=== PATIENT | male | born 1960 | race Caucasian/White ===

== ENCOUNTER 2019-02-06 05:08 | Emergency (ER) | payer OTHER ==
--- NOTE | 2019-02-06 06:19 | EDM.PDOC ---
ED HPI GENERAL MEDICAL PROBLEM - General Chief Complaint: Genitourinary Problem Stated Complaint: BLADDER PROBLEMS Time Seen by Provider: 02/06/19 06:15 Source of Information: Reports: Patient, Family, RN Notes Reviewed History Limitations: Reports: No Limitations - History of Present Illness INITIAL COMMENTS - FREE TEXT/NARRATIVE: 58-year-old gentleman presents emergency department today with complaint of urinary retention. He recently had surgery with prostate biopsies had Siegel catheter removed a couple days prior now is having difficulty with urination. Penis Pain Score (Numeric/FACES): 8 - Related Data Allergies Allergy/AdvReac Type Severity Reaction Status Date / Time Penicillins AdvReac Hives Verified 02/06/19 05:31 Past Medical History HEENT History: Reports: Impaired Vision Respiratory History: Reports: Sleep Apnea Genitourinary History: Reports: Renal Calculus Neurological History: Reports: Cerebral Aneurysms, TIA Endocrine/Metabolic History: Reports: Obesity/BMI 30+ Oncologic (Cancer) History: Reports: Prostate - Past Surgical History Head Surgeries/Procedures: Reports: None Cardiovascular Surgical History: Reports: Other (See Below) Respiratory Surgical History: Reports: None GI Surgical History: Reports: Cholecystectomy, Hernia, Abdominal Endocrine Surgical History: Reports: None Neurological Surgical History: Reports: Spinal Fusion Musculoskeletal Surgical History: Reports: Knee Replacement Oncologic Surgical History: Reports: None Social & Family History - Tobacco Use Smoking Status *Q: Current Every Day Smoker Years of Tobacco use: 30 Packs/Tins Daily: 1 Used Tobacco, but Quit: No Second Hand Smoke Exposure: No - Caffeine Use Caffeine Use: Reports: Coffee - Alcohol Use Days Per Week of Alcohol Use: 7 Number of Drinks Per Day: 6 Total Drinks Per Week: 42 - Recreational Drug Use Recreational Drug Use: No ED ROS GENERAL - Review of Systems Review Of Systems: See Below Constitutional: Denies: Fever, Chills HEENT: Reports: No Symptoms Respiratory: Reports: No Symptoms Cardiovascular: Reports: No Symptoms GI/Abdominal: Reports: Abdominal Pain : Reports: Urinary Retention ED EXAM, RENAL/ - Physical Exam Exam: See Below Exam Limited By: No Limitations General Appearance: Alert, Mild Distress Respiratory/Chest: No Respiratory Distress GI/Abdominal: Soft, Tender (Suprapubic) Course - Vital Signs Last Recorded V/S: Last Vital Signs Temp 98.5 F 02/06/19 05:35 Pulse 81 02/06/19 05:35 Resp 16 02/06/19 05:35 BP 131/67 02/06/19 05:35 Pulse Ox 92 L 02/06/19 05:35 - Orders/Labs/Meds Orders: Active Orders 24 hr Category Date Time Status Insert Siegel Catheter [Insert Urinary Catheter] [OM.PC] Care 02/06/19 06:15 Ordered Q24H Urinary Catheter Assessment [RC] ASDIRECTED Care 02/06/19 06:16 Active Labs: Laboratory Tests 02/06/19 Range/Units 06:35 Urine Color Brown Urine Appearance Cloudy Urine pH 5.0 (4.5-8.0) Ur Specific Draper 1.025 (1.008-1.030) Urine Protein 100 H (NEGATIVE) mg/dL Urine Glucose (UA) Normal (NEGATIVE) mg/dL Urine Ketones Negative (NEGATIVE) mg/dL Urine Occult Blood Large (NEGATIVE) Urine Nitrite Negative (NEGAITVE) Urine Bilirubin Negative (NEGATIVE) Urine Urobilinogen Normal (NORMAL) mg/dL Ur Leukocyte Esterase Negative (NEGATIVE) Urine RBC Packed H (0-5) Urine WBC 0-5 (0-5) Ur Epithelial Cells Few Amorphous Sediment Many Urine Bacteria Few Urine Mucus Not seen Departure - Departure Time of Disposition: 06:49 Disposition: Home, Self-Care 01 Condition: Fair Clinical Impression: Retention of urine - Discharge Information Instructions: Indwelling Urinary Catheter Care, Adult Referrals: PCP,None [Primary Care Provider] - Forms: ED Department Discharge Additional Instructions: Continue using the leg bag until reevaluated by urology, call return to the emergency department worsening of symptoms - My Orders Last 24 Hours: My Active Orders 02/06/19 06:15 Insert Siegel Catheter [Insert Urinary Catheter] [OM.PC] Q24H 02/06/19 06:16 Urinary Catheter Assessment [RC] ASDIRECTED - Assessment/Plan Last 24 Hours: My Active Orders 02/06/19 06:15 Insert Siegel Catheter [Insert Urinary Catheter] [OM.PC] Q24H 02/06/19 06:16 Urinary Catheter Assessment [RC] ASDIRECTED Plan: Assessment Acuity = acute Site and laterality = urinary retention Etiology = probably related to recent surgery Manifestations = abdominal pain now resolved Location of injury = Home Lab values = urinalysis reveals packed red blood cells consistent hematuria Plan Siegel catheter is placed follow-up with urology in 2-3 days for reevaluation This note was dictated using [employer] voice recognition software please call with any questions on syntax or grammar.
== END 2019-02-06 07:08 | disposition home or self-care (01) ==
LOC: JP.ED 05:08
DX: R33.9 Retention of urine, unspecified (principal); F17.210 Nicotine dependence, cigarettes, uncomplicated; Z88.0 Allergy status to penicillin; Z86.73 Personal history of transient ischemic attack (TIA), and cerebral infarction without residual deficits
CPT/HCPCS: 51702; 81001; 99283